=== PATIENT | male | born 1995 | race Caucasian/White ===

== ENCOUNTER 2020-07-17 15:09 | Emergency (ER) | payer OTHER ==
[~2020-07-17] VITALS: Ht 177.8 cm; Wt 75.6 kg
[2020-07-17 18:28] VITALS: BP 119/86
== END 2020-07-17 19:04 | disposition home or self-care (01) ==
LOC: EMS 15:11
DX: T18.5XXA Foreign body in anus and rectum, initial encounter (principal); F17.210 Nicotine dependence, cigarettes, uncomplicated; F14.90 Cocaine use, unspecified, uncomplicated; W45.8XXA Other foreign body or object entering through skin, initial encounter; Y93.89 Activity, other specified; Y92.89 Other specified places as the place of occurrence of the external cause; Y99.8 Other external cause status
CPT/HCPCS: 74176; 99284; Z7502